=== PATIENT | male | born 1955 | race Caucasian/White ===

== ENCOUNTER → 2024-01-07 08:54 | Outpatient (REF) | payer MEDICARE, OTHER, SELFPAY | LOC: RCS 08:54 | PROVIDERS: ATTENDING PHYSICIAN Nuclear Medicine Nuclear Cardiology; FAMILY PHYSICIAN Internal Medicine | DX: I45.10 Unspecified right bundle-branch block (principal); I10 Essential (primary) hypertension; R93.1 Abnormal findings on diagnostic imaging of heart and coronary circulation | CPT/HCPCS: 93017; 93350 ==

== ENCOUNTER → 2024-01-28 10:15 | Outpatient (REF) | payer MEDICARE, OTHER, SELFPAY | LOC: HWRCS 10:15 | PROVIDERS: ATTENDING PHYSICIAN Nuclear Medicine Nuclear Cardiology; FAMILY PHYSICIAN Internal Medicine | DX: I45.10 Unspecified right bundle-branch block (principal); I10 Essential (primary) hypertension | CPT/HCPCS: 93306 ==

== ENCOUNTER → 2024-06-16 13:16 | Outpatient (REF) | payer MEDICARE, OTHER, SELFPAY | LOC: RAD 13:16 | PROVIDERS: ATTENDING PHYSICIAN Nurse Practitioner Family; FAMILY PHYSICIAN Internal Medicine | DX: R30.0 Dysuria (principal); R35.0 Frequency of micturition; R39.12 Poor urinary stream; R35.1 Nocturia | CPT/HCPCS: 76770 ==

== ENCOUNTER → 2025-07-20 14:46 | Outpatient (REF) | payer MEDICARE, OTHER, SELFPAY | LOC: RAD 14:46 | PROVIDERS: ATTENDING PHYSICIAN Nurse Practitioner Family; FAMILY PHYSICIAN Internal Medicine | DX: M25.561 Pain in right knee (principal) | CPT/HCPCS: 73564 ==